=== PATIENT | male | born 2000 | race Caucasian/White ===

== ENCOUNTER 2024-03-15 11:47 | Day surgery (SDC) | payer BC ==
[2024-03-14 09:53] VITALS: BMI 25.7
[2024-03-15] MEDS ORDERED: Midazolam HCl 2 mg/2 ml Vial ONE (13:14)
[2024-03-15] MEDS ORDERED: ePHEDrine Sulfate 50 MG/10 ML VIAL ONE (13:16)
[2024-03-15] MEDS ORDERED: PROPOFOL 20 ML ONE (13:16)
[2024-03-15] MEDS ORDERED: fentaNYL 50 mcg/mL 1 mL Vial ONE ×2 (13:16→15:17)
[2024-03-15] MEDS ORDERED: Rocuronium Bromide 10 MG/ML (10ML VIAL) ONE (13:17)
[2024-03-15] MEDS ORDERED: PHENYLEPHRINE-NS 100 MCG/ML 10 ML SYRINGE ONE (13:17)
[2024-03-15] MEDS ORDERED: Ondansetron PF 4 MG/2 ML Vial ONE (13:17)
[2024-03-15] MEDS ORDERED: Lidocaine 2% PF 5 ML VIAL ONE (13:17)
[2024-03-15] MEDS ORDERED: Dexamethasone 4 mg/ml Vial ONE (13:17)
[2024-03-15] MEDS ORDERED: Lidocaine 2% PF 100 mg/5 ml Syringe ONE (13:17)
[2024-03-15] MEDS ORDERED: Ketorolac Tromethamine 30 MG (1 mL) VIAL ONE (13:25)
[2024-03-15] MEDS ORDERED: Bupivacaine PF 0.5% 30 ML VIAL ONE (13:26)
[2024-03-15] MEDS ORDERED: EPINEPHrine 1 MG/ML VIAL ONE (13:26)
[2024-03-15] MEDS ORDERED: CEFAZOLIN 2 GM VIAL ONE (13:35)
[2024-03-15] MEDS ORDERED: SUGAMMADEX SODIUM 200 MG/2 ML VIAL ONE (14:26)
== END 2024-03-15 16:15 | disposition home or self-care (01) ==
LOC: CSHSDC 11:47
PROVIDERS: ATTEND Surgery
PROC: 0HX8XZZ Transfer Buttock Skin, External Approach (ICD-10-PCS; principal; 2024-03-15)
PROC: 0HB8XZZ Excision of Buttock Skin, External Approach (ICD-10-PCS; principal; 2024-03-15)
DX: L05.91 Pilonidal cyst without abscess (principal)
CPT/HCPCS: J0171; J0665; J1100; J1885; J2001; J2250; J2405; J2704; J3010